=== PATIENT | male | born 1955 | race Caucasian/White ===

== ENCOUNTER 2017-05-20 11:34 | Emergency (ER) | payer MEDICAID ==
[~2017-05-20] VITALS: Ht 182.9 cm; Wt 110.0 kg
[2017-05-20] MEDS ORDERED: KETOROLAC 30MG/ML VIAL IV STA (11:42)
[2017-05-20] MEDS ORDERED: SODIUM CHLORIDE 0.9% 500 ML IV ONE (11:42)
[2017-05-20] MEDS ORDERED: ONDANSETRON HCL 4MG/2ML VIAL IV STA (11:42)
[2017-05-20] MEDS ORDERED: MORPHINE SULFATE 4 MG/ML CPJ (NOT FOR IM USE) IV STA (11:42)
[2017-05-20 12:12] LABS: BASOPHILS % 0.8 % (0.0-2.0); EOSINOPHILS % 1.1 % (0.0-5.0); HEMATOCRIT. 40.1 % (42.0-52.0); HEMOGLOBIN. 13.6 g/dL (14.0-18.0); LYMPHOCYTES % 30.1 % (20.0-50.0); MEAN CORPUSCULAR HEMOGLOBIN 27.3 pg (28.0-32.0); MEAN CORPUSCULAR VOLUME 80.2 fL (80.0-94.0); MEAN PLATELET VOLUME 8.2 fl (7.4-10.4); MONOCYTES % 9.3 % (2.0-8.0); NEUTROPHILS % 58.7 % (40.0-76.0); PLATELET 248 x1000/uL (130-400)
[2017-05-20 12:21] LABS: INR 1.1; PROTHROMBIN TIME 11.5 sec (9.4-11.6)
[2017-05-20 12:23] LABS: CHLORIDE 103 mEq/L (98-107)
[2017-05-20 12:29] LABS: CREATINE KINASE 155 IU/L (39-308)
[2017-05-20 12:30] LABS: TROPONIN I < 0.02 ng/mL (0.00-0.04)
[2017-05-20] MEDS ORDERED: MORPHINE SULFATE 10 MG/ML CPJ IM ONE (14:15)
[2017-05-20 15:10] VITALS: BP 145/91
== END 2017-05-20 15:23 | disposition home or self-care (01) ==
LOC: ER 12:25
DX: S20.219A Contusion of unspecified front wall of thorax, initial encounter (principal); S80.10XA Contusion of unspecified lower leg, initial encounter; I10 Essential (primary) hypertension; V43.52XA Car driver injured in collision with other type car in traffic accident, initial encounter; Y92.410 Unspecified street and highway as the place of occurrence of the external cause
CPT/HCPCS: 36415; 71045; 71250; 73590; 80053; 82550; 83690; 83880; 84484; 85025; 85610; 85730; 93005; 96361; 96372; 96374; 96375; 99285; J1885; J2270; J2405; J7040; J7050; Z7610